=== PATIENT | male | born 1990 | race African-American/Black ===

== ENCOUNTER 2018-04-29 17:23 | Emergency (ER) | payer BC, SELFPAY ==
[2018-04-29] MEDS ORDERED: Albuterol Sulfate 2.5 mg/0.5 ml Neb ONE ×2 (17:33)
[2018-04-29] MEDS ORDERED: predniSONE 20 MG TAB ONE (17:36)
== END 2018-04-29 18:35 | disposition home or self-care (01) ==
LOC: ERS 17:23
DX: J45.901 Unspecified asthma with (acute) exacerbation (principal); J20.9 Acute bronchitis, unspecified
CPT/HCPCS: 94644; J7506; J7611; J7620